=== PATIENT | female | born 2000 | race Two or more races ===

== ENCOUNTER → 2022-04-27 11:24 | Outpatient (BNVA) | payer OTHER, SELFPAY | PROVIDERS: Visit Provider Physician Assistant | DX: S62.396A Other fracture of fifth metacarpal bone, right hand, initial encounter for closed fracture (principal); Y04.8XXA Assault by other bodily force, initial encounter | CPT/HCPCS: 73130; 99204 ==

== ENCOUNTER 2022-05-02 08:32 | Outpatient (REF) | payer OTHER, SELFPAY ==
--- NOTE | ~2022-05-02 | XR_ITS ---
EXAMINATION: XR HAND, RIGHT CLINICAL INFORMATION: Pain right hand. COMPARISON: None TECHNIQUE: PA, lateral, and oblique views of the right hand. FINDINGS: There is distal fifth metacarpal fracture with minimal volar angulation. No additional fracture seen. No intra-articular extension. The soft tissues are normal. No other fracture seen. XR/XR hand RT min 3V IMPRESSION: Stable fifth metatarsal neck fracture.
== END 2022-05-02 08:33 | disposition home or self-care (01) ==
LOC: HO.HOSX 08:32
PROVIDERS: Visit Provider Orthopaedic Surgery
DX: S62.336A Displaced fracture of neck of fifth metacarpal bone, right hand, initial encounter for closed fracture (principal)
CPT/HCPCS: 26600; 73130; 99202

== ENCOUNTER 2022-05-29 10:49 | Outpatient (REF) | payer OTHER, SELFPAY ==
--- NOTE | ~2022-05-29 | XR_ITS ---
EXAMINATION: XR HAND, RIGHT CLINICAL INFORMATION: Fifth metacarpal fracture, follow-up. COMPARISON: Right hand radiographs dated 04/27/2022 and 05/02/2022. TECHNIQUE: PA, lateral, and oblique views of the right hand. FINDINGS: Again seen is a mildly angulated fracture of the distal metaphysis of the fifth metacarpal with minimal interval healing. The remainder the digits are intact. The carpal bones are normally aligned. The distal radius and ulna are intact. There is mild soft tissue swelling. XR/XR hand RT min 3V IMPRESSION: Evidence for minimal progressive healing of distal fifth metacarpal fracture.
== END 2022-05-29 10:50 | disposition home or self-care (01) ==
LOC: HO.HOSX 10:49
PROVIDERS: Visit Provider Orthopaedic Surgery
DX: M79.641 Pain in right hand (principal)
CPT/HCPCS: 73130